=== PATIENT | male | born 1965 | race Caucasian/White ===

== ENCOUNTER 2021-01-04 08:56 | Outpatient (CLI) | payer OTHER ==
--- NOTE | 2021-01-04 10:50 | XRAY Report ---
PROCEDURE: Chest 2 View X-Ray INDICATIONS: Acute bronchitis causing by SARS-CoV-2 TECHNIQUE: 2 view(s) of the chest. COMPARISON: None. FINDINGS: Surgical changes and devices: None. Lungs and pleura: No pleural effusions or pneumothorax. Increased interstitial markings in both lung s. No focal consolidation or definite airspace opacity. Mediastinum: Mediastinal contours are normal. Heart size is normal. Bones and chest wall: No suspicious bony abnormalities. Soft tissues appear unremarkable. IMPRESSION: Mildly increased interstitial markings in both lungs, which can be seen in the setting o f viral pneumonitis an small airway disease. Reviewed by: Hever Kong MD on 01/04/2021 10:49 AM PDT Approved by: Hever Kong MD on 01/04/2021 10:49 AM PDT Station ID: [id number]
== END 2021-01-04 23:59 | disposition home or self-care (01) ==
LOC: DI.N 08:56
PROVIDERS: ATTEND Physician Assistant Medical
DX: U07.1 COVID-19 (principal); R91.8 Other nonspecific abnormal finding of lung field

== ENCOUNTER 2021-08-26 08:00 | Outpatient (CLI) | payer OTHER | END 2021-08-26 08:01 | disposition home or self-care (01) | LOC: LAB.N 08:00 | PROVIDERS: ATTEND Physician Assistant Medical | DX: N30.00 Acute cystitis without hematuria (principal) | CPT/HCPCS: 87086 ==

== ENCOUNTER 2022-10-25 15:09 | Outpatient (CLI) | payer OTHER ==
--- NOTE | 2022-10-25 20:20 | XRAY Report ---
PROCEDURE: Ankle 3 View LT INDICATIONS: ANKLE PAIN TECHNIQUE: 3 views of the ankle were acquired. COMPARISON: None. FINDINGS: Bones: Postsurgical changes are seen in lateral malleolus. No fractures or dislocations. Ankle mort ise is normally aligned. No suspicious bony lesions. Soft tissues: No tibiotalar joint effusion. Achilles tendon appears normal. IMPRESSION: No acute bony abnormality. Prior surgery involving lateral malleolus. Reviewed by: Juan Carlos Mehta MD on 10/25/2022 8:19 PM PDT Approved by: Juan Carlos Mehta MD on 10/25/2022 8:19 PM PDT Station ID: [id number]
== END 2022-10-25 15:10 | disposition home or self-care (01) ==
LOC: DI 15:09
PROVIDERS: ATTEND Internal Medicine
DX: M25.572 Pain in left ankle and joints of left foot (principal)

== ENCOUNTER 2023-10-14 11:12 | Emergency (ER) | payer OTHER ==
[2023-10-14 11:45] LABS: BILIRUBIN,URINE NEGATIVE (NEGATIVE); GLUCOSE, URINE (UA) 250 mg/dL (NEGATIVE); KETONES,URINE (UA) NEGATIVE (NEGATIVE); LEUKOCYTE ESTERASE, URINE NEGATIVE (NEGATIVE); NITRITE,URINE NEGATIVE (NEGATIVE); OCCULT BLOOD,URINE NEGATIVE (NEGATIVE); PH,URINE 6.5 PH (5.0-7.5); PROTEIN,URINE NEGATIVE (NEGATIVE); UROBILINOGEN,URINE 0.2 (NORMAL) E.U./dL (NORMAL)
[2023-10-14 11:46] LABS: CLARITY,URINE CLEAR (CLEAR)
[2023-10-14] MEDS ORDERED: iohexoL-300 100 ML VIAL ONE (12:18)
[2023-10-14 12:25] LABS: BASOPHILS % (AUTO) 0.2 %; EOSINOPHILS # (AUTO) 0.1 10^3/uL (0.0-0.7); EOSINOPHILS % (AUTO) 1.6 %; HCT - HEMATOCRIT 39.8 % (42.0-52.0); HGB - HEMOGLOBIN 13.1 g/dL (14.0-18.0); LYMPHOCYTES # (AUTO) 0.9 10^3/uL (1.5-3.5); MEAN CORPUSCULAR HGB CONC 32.9 g/dL (32.0-36.0); MEAN CORPUSCULAR VOLUME 88.1 fL (80.0-94.0); MEAN PLATELET VOLUME 9.9 fL (7.4-11.4); MONOCYTES # (AUTO) 0.4 10^3/uL (0.0-1.0); MONOCYTES % (AUTO) 7.8 %; NEUTROPHILS # (AUTO) 3.5 10^3/uL (1.5-6.6); PLT - PLATELET COUNT 209 10^3/uL (130-450); RED BLOOD COUNT 4.52 10^6/uL (4.70-6.10); RED CELL DISTRIBUTION WIDTH 12.7 % (12.0-15.0); WHITE BLOOD COUNT 4.9 x10^3/uL (4.8-10.8)
[2023-10-14 12:39] LABS: ALBUMIN 4.2 g/dL (3.2-5.5); ALBUMIN/GLOBULIN RATIO 1.6 (1.0-2.2); BILIRUBIN,TOTAL 0.5 mg/dL (0.2-1.0); CALCIUM 9.8 mg/dL (8.5-10.3); POTASSIUM 3.7 mmol/L (3.5-4.5); TOTAL PROTEIN 6.8 g/dL (6.4-8.9)
--- NOTE | 2023-10-14 13:44 | CT Report ---
PROCEDURE: Abdomen/Pelvis W INDICATIONS: painless hematuria, hx prostate ca CONTRAST: 100ml omni TECHNIQUE: After the administration of intravenous contrast, a CT scan of the abdomen and pelvis was performed. Images were recorded and evaluated at appropriate window settings. Reformats: coronal and sagittal. F or radiation dose reduction, the following was used: automated exposure control, adjustment of mA and /or kV according to patient size. COMPARISON: None. FINDINGS: Image quality: Diagnostic. Lower chest: Unremarkable. Liver: No solid mass. Gallbladder: Contracted and grossly unremarkable. Biliary tree: No intrahepatic or extrahepatic dilation, accounting for age. Spleen: No splenomegaly. Pancreas: No pancreatic ductal dilation. Adrenals: No adrenal nodule. Kidneys and ureters: No hydronephrosis. No renal cystic lesion which requires follow up. No solid mas s. Stomach, bowel and peritoneum: No gastric or small bowel dilation. No abnormal wall thickening. No pa thologic free fluid. Appendix is normal. Lymph nodes: No central or retroperitoneal adenopathy. Vessels: No infrarenal aortic aneurysm. Patent portal vein. PELVIS Reproductive organs: Prostate gland is enlarged. Bladder: No abnormal wall thickening, accounting for underdistention. Pelvic lymph nodes: No pelvic adenopathy by size criteria. 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 Other: Bilateral fat-containing inguinal hernia. 2.3 cm posterior lateral right rectus musculature li maynor. IMPRESSION: No visualized cause of hematuria. 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 Given history of prostate cancer, metastatic focus cannot be excluded. Reviewed by: Estefanía Benton MD on 10/14/2023 1:42 PM PDT Approved by: Estefanía Benton MD on 10/14/2023 1:42 PM PDT Station ID: [id number]
--- NOTE | 2023-10-14 13:48 | ED Physician Documentation ---
PD HPI MALE - Stated complaint Stated Complaint: - Chief complaint Chief Complaint: Abd Pain - History obtained from History obtained from: Patient - Additional information Additional information: 58-year-old male with history of prostate cancer status post radiation, in remission for 1.5 years presents for evaluation of what appear to be blood in his urine. Patient states that he was urinating normally yesterday when all of a sudden a clump of bloody looking tissue passed from his penis into the toilet bowl.Since yesterday has also noticed vague lower abdominal and testicular discomfort. He called his urologist, who recommended evaluation in the emergency department based on his history of remote prostate cancer. Patient currently denies symptoms at this time. Denies use of blood thinners. Review of Systems Constitutional: denies: Fever, Chills GI: reports: Abdominal Pain. denies: Vomiting, Constipation, Diarrhea : reports: Hematuria, Testicular pain. denies: Dysuria, Frequency, Hesitancy Skin: denies: Rash, Lesions, Abrasion (s) Neurologic: denies: Generalized weakness, Focal weakness, Numbness PD PAST MEDICAL HISTORY - Past Medical History Past Medical History: Yes Cardiovascular: Hypertension, High cholesterol : Other Psych: Depression Other Past Medical History: prostate cancer - Past Surgical History Past Surgical History: Yes Ortho: Spine surgery - Present Medications Home Medications: Ambulatory Orders Medication Instructions Recorded Confirmed Citalopram Hydrobromide 40 mg PO DAILY 10/14/23 10/14/23 [Citalopram HBr] Losartan [Cozaar] 50 mg PO DAILY 10/14/23 10/14/23 Simvastatin [Zocor] 80 mg PO HS 10/14/23 10/14/23 Tamsulosin [Flomax] 1 cap PO DAILY 10/14/23 10/14/23 amLODIPine [Norvasc] 5 mg PO DAILY 10/14/23 10/14/23 metFORMIN [Glucophage] 500 mg PO DAILY #60 tablet 10/14/23 traZODone [Desyrel] 100 mg PO HS 10/14/23 10/14/23 - Allergies Allergies/Adverse Reactions: Allergies Allergy/AdvReac Type Severity Reaction Status Date / Time No Known Drug Allergies Allergy Verified 10/14/23 11:29 - Social History Does the pt smoke?: No Smoking Status: Never smoker Does the pt drink ETOH?: No Does the pt have substance abuse?: No - Immunizations Immunizations are current?: Yes PD ED PE NORMAL - Vitals Vital signs reviewed: Yes - General General: Alert and oriented X 3, No acute distress, Well developed/nourished - Cardiac Cardiac: RRR, No murmur, Strong equal pulses - Respiratory Respiratory: No respiratory distress, Clear bilaterally - Abdomen Abdomen: Soft, Non tender, Non distended - Male Male : Panel Sewer present, Other (Normal external genitalia, no hernia) - Derm Derm: Normal color, Warm and dry, No rash - Extremities Extremities: No deformity, No tenderness to palpate, Normal ROM s pain, No edema - Neuro Neuro: Alert and oriented X 3, 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, No motor deficit, Normal speech Results - Vitals Vitals: Oxygen O2 Source Room air - Labs Labs: Laboratory Tests 10/14/23 10/14/23 10/14/23 11:34 12:19 12:19 WBC 4.9 RBC 4.52 L Hgb 13.1 L Hct 39.8 L MCV 88.1 MCH 29.0 MCHC 32.9 RDW 12.7 Plt Count 209 MPV 9.9 Neut # (Auto) 3.5 Lymph # (Auto) 0.9 L [place] # (Auto) 0.4 Eos # (Auto) 0.1 Baso # (Auto) 0.0 Absolute Nucleated RBC 0.00 Nucleated RBC % 0.0 Sodium 136 Potassium 3.7 Chloride 99 L Carbon Dioxide 32 Anion Gap 5.0 L BUN 14 Creatinine 1.0 Estimated GFR (MDRD) 77 L Glucose 253 H Calcium 9.8 Total Bilirubin 0.5 AST 16 ALT 23 Alkaline Phosphatase 54 Total Protein 6.8 Albumin 4.2 Globulin 2.6 Albumin/Globulin Ratio 1.6 Lipase 18 Urine Color YELLOW Urine Clarity CLEAR Urine pH 6.5 Ur Specific [place] 1.020 Urine Protein NEGATIVE Urine Glucose (UA) 250 H Urine Ketones NEGATIVE Urine Occult Blood NEGATIVE Urine Nitrite NEGATIVE Urine Bilirubin NEGATIVE Urine Urobilinogen 0.2 (NORMAL) Ur Leukocyte Esterase NEGATIVE Ur Microscopic Review NOT INDICATED Urine Culture Comments NOT INDICATED PD Medical Decision Making - ED course Complexity details: reviewed results, re-evaluated patient, considered differential, d/w patient ED course: Well-appearing patient with passage of bloody tissue in the toilet bowl yesterday. He reports abdominal pain and vague testicular discomfort yesterday, however exam is benign and he is denying any pain at this time. Laboratory work and imaging to be obtained. Laboratory work is reviewed, incidental finding of elevated blood glucose qualifying patient for diagnosis of diabetes. Patient denies history of diabetes, but states he has been told that he is prediabetic in the past. Urinalysis negative for infection or blood, some glucose present. CT of the abdomen and pelvis is significant for a single sclerotic focus on right iliac region, however no findings to explain patient's hematuria yesterday are found. Patient was informed of his abnormal blood work as well as the sclerotic finding on CT imaging. He was given a copy of the CT report that he may take to his urologist appointment. Started on metformin in the interim until he can follow-up with primary care. Departure - Departure Disposition: Home, Self Care Clinical Impression: Hematuria, Hyperglycemia Condition: Stable Instructions: ED Abdominal Pain Unkn Cause Male Prescriptions: metFORMIN [Glucophage] 500 mg PO DAILY #60 tablet Comments: Your laboratory work today showed an elevated blood glucose, qualifying you for a diagnosis of diabetes. Follow-up with your primary care doctor For any additional testing. I am starting you on a low-dose of metformin, which is for diabetes. Initial dose is 500 mg daily, however you may increase the dose by 500 mg every week with maximum dose of 2000 mg/day. It was noted that you had a area of sclerosis on your Right iliac region. This may be normal, but given your history of prostate cancer I do recommend following up to make sure that this is not a recurrence of disease. Metformin sent to [facility] Forms: PCP List Discharge Date/Time: 10/14/23 14:19
[2023-10-14] MEDS: iohexoL-300 100 ML VIAL IVP ONE (14:00)
[2023-10-14 14:27] VITALS: BP 175/93; O2SAT 98
== END 2023-10-14 14:19 | disposition home or self-care (01) ==
LOC: ED 11:12
DX: R31.9 Hematuria, unspecified (principal); R73.9 Hyperglycemia, unspecified; I10 Essential (primary) hypertension; E78.00 Pure hypercholesterolemia, unspecified; Z85.46 Personal history of malignant neoplasm of prostate; Z79.899 Other long term (current) drug therapy
CPT/HCPCS: 36415; 74177; 80053; 81003; 83690; 85025; 99284; Q9967; 81001; 87086